=== PATIENT | male | born 1960 | race Caucasian/White ===

== ENCOUNTER 2016-06-21 14:30 | Observation (INO) | payer MEDICAID, OTHER ==
[~2016-06-21] VITALS: Ht 177.8 cm; Wt 60.0 kg
[~2016-06-21 14:30] MED LIST: ASPI1TAB69 PO; ATOR10TA15 PO; CARV3.12 PO; CLOP75TA PO; FENT75DI T-DERMAL; LISI-519 PO; ONDA1TAB17 PO; PROC10TA PO
[2016-06-21 14:33] VITALS: BP 177/80; PULSE 87; RESP 17; TEMP 98.2; O2SAT 98
[2016-06-21 14:42] VITALS: O2SAT 100
[2016-06-21] MEDS ORDERED: SODIUM CHLORIDE 0.9% FLUSH 10 ML FLUSH IVF PRN (15:00)
[2016-06-21] MEDS ORDERED: ONDANSETRON HCL 4 MG/2 ML VIAL IV PUSH ONE (15:00)
--- NOTE | 2016-06-21 15:03 | PD ---
HPI Chief Complaint: Chest Pain Time Seen by Provider: 14:50 Travel History International Travel<30 days: No Contact w/Intl Traveler<30days: No Traveled to known affect area: No History of Present Illness HPI Patient comes in complaining of right-sided chest pain that is sharp stabbing like in nature that began this morning. Patient states he took his morning home medications, including an aspirin, that seemed to improve his symptoms for little while however symptoms came back. Patient reports associated nausea, headache, and right-sided jaw pain. Patient states the symptoms are similar to when he had a heart attack approximately a year ago. Patient denies anything making symptoms worse. Denies any shortness of breath, numbness or tingling, abdominal pain, vomiting, or loss or change in bowel or bladder. 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 Pride that placed stent last year. PFSH Past Medical History Hx Anticoagulant Therapy: Yes Cardiovascular Problems: Yes ([place] ) High Cholesterol: No Chest Pain: Yes Congestive Heart Failure: No Cerebrovascular Accident: No Coronary Artery Disease: Yes Diminished Hearing: No Endocrine: No Genitourinary: No Immune Disorder: No Musculoskeletal: No Psychiatric: No Reproductive: No Respiratory: No Immunizations Current: No Migraines: No ?: Not Past Surgical History Cardiac Surgery: Yes (CARDIAC CATH W/ STENT 04/27/15) Other Surgery: Yes (EXTENSIVE FACIAL RECONSTRUCTION PT TRAUMA ) Social History Alcohol Use: Yes (OCCASSIONAL) Tobacco Use: Yes (2 PPD X 38 YRS) Substance Use: Yes (USE MARIJUANA) Allergies-Medications (Allergen,Severity, Reaction): Coded Allergies: Adhesives (Verified Allergy, Severe, RASH AND INFECTION, 12/23/15) Reported Meds & Prescriptions Reported Meds & Active Scripts Active Reported Percocet (Oxycodone-Acetaminophen) 5-325 mg Tab 1 Tab PO Q4H PRN Clopidogrel (Clopidogrel Bisulfate) 75 Mg Tab 75 Mg PO DAILY Atorvastatin (Atorvastatin Calcium) 10 Mg Tab 10 Mg PO HS Lisinopril 5 Mg Tab 5 Mg PO DAILY Ondansetron (Ondansetron HCl) 8 Mg Tab 8 Mg PO TID PRN Prochlorperazine Maleate 10 Mg Tab 10 Mg PO QID PRN Carvedilol 3.125 Mg Tab 3.125 Mg PO BID Aspirin 81 Mg Tabdr 162 Mg PO DAILY Review of Systems Except as stated in HPI: all other systems reviewed are Neg Physical Exam Narrative GENERAL: Well-developed, under nourished, in no acute distress, and non-ill appearing. SKIN: Focused skin assessment warm and dry. HEAD: Atraumatic. Normocephalic. EYES: Pupils equal and round. EOMI. No scleral icterus. No injection or drainage. ENT: No nasal bleeding or discharge. Mucous membranes pink and moist. NECK: Trachea midline. No JVD. Supple. No nuclear rigidity. CARDIOVASCULAR: Regular rate and rhythm. No murmur appreciated. RESPIRATORY: No accessory muscle use. No respiratory distress. Clear to auscultation. Breath sounds equal bilaterally. GASTROINTESTINAL: Abdomen soft, non-tender, nondistended. Hepatic and splenic margins not palpable. No pulsatile mass. MUSCULOSKELETAL: No obvious deformities. No clubbing. No cyanosis. No edema. Full range of motion. NEUROLOGICAL: Awake and alert. No obvious cranial nerve deficits. Motor grossly within normal limits. Normal speech. PSYCHIATRIC: Appropriate mood and affect; insight and judgment normal. Data Data Last Documented VS Vital Signs Date Time Temp Pulse Resp B/P Pulse Ox O2 Delivery O2 Flow Rate FiO2 06/21/16 17:37 92 16 129/79 98 Room Air 06/21/16 14:33 98.2 Orders Electrocardiogram (06/21/16 ) Basic Metabolic Panel (Bmp) (06/21/16 14:51) Ckmb (Isoenzyme) Profile (06/21/16 14:51) Complete Blood Count With Diff (06/21/16 14:51) Magnesium (Mg) (06/21/16 14:51) Prothrombin Time / Inr (Pt) (06/21/16 14:51) Act Partial Throm Time (Ptt) (06/21/16 14:51) Troponin I (06/21/16 14:51) Chest, Single Ap (06/21/16 14:51) Ecg Monitoring (06/21/16 14:51) Bilateral Bp Monitoring (06/21/16 14:51) Iv Access Insert/Monitor (06/21/16 14:51) Oximetry (06/21/16 14:51) Oxygen Administration (06/21/16 14:51) Sodium Chloride 0.9% Flush (Ns Flush) (06/21/16 15:00) Ct Pulmonary Angiogram (06/21/16 14:51) Ondansetron Inj (Zofran Inj) (06/21/16 15:00) Iohexol 350 Inj (Omnipaque 350 Inj) (06/21/16 17:36) Admit Order (Ed Use Only) (06/21/16 18:10) Labs Laboratory Tests Test 06/21/16 15:00 White Blood Count 10.8 TH/MM3 Red Blood Count 2.45 MIL/MM3 Hemoglobin 8.7 GM/DL Hematocrit 24.5 % Mean Corpuscular Volume 99.9 FL Mean Corpuscular Hemoglobin 35.5 PG Mean Corpuscular Hemoglobin 35.6 % Concent Red Cell Distribution Width 13.2 % Platelet Count 79 TH/MM3 Mean Platelet Volume 9.2 FL Neutrophils (%) (Auto) 72.5 % Lymphocytes (%) (Auto) 18.4 % Monocytes (%) (Auto) 8.4 % Eosinophils (%) (Auto) 0.5 % Basophils (%) (Auto) 0.2 % Neutrophils # (Auto) 7.8 TH/MM3 Lymphocytes # (Auto) 2.0 TH/MM3 Monocytes # (Auto) 0.9 TH/MM3 Eosinophils # (Auto) 0.1 TH/MM3 Basophils # (Auto) 0.0 TH/MM3 CBC Comment AUTO DIFF Differential Comment AUTO DIFF CONFIRMED Platelet Estimate LOW Platelet Morphology Comment NORMAL Prothrombin Time 11.4 SEC Prothromb Time International 1.0 RATIO Ratio Activated Partial 34.8 SEC Thromboplast Time Sodium Level 133 MEQ/L Potassium Level 3.9 MEQ/L Chloride Level 101 MEQ/L Carbon Dioxide Level 24.2 MEQ/L Anion Gap 8 MEQ/L Blood Urea Nitrogen 9 MG/DL Creatinine 0.65 MG/DL Estimat Glomerular Filtration 128 ML/MIN Rate Random Glucose 103 MG/DL Calcium Level 8.7 MG/DL Magnesium Level 1.4 MG/DL Total Creatine Kinase 46 U/L Troponin I LESS THAN 0.02 NG/ML Exceptions Acute Myocardial Infarction ASA Not Given on Arrival: Already taken by patient MDM Medical Decision Making Medical Screen Exam Complete: Yes Emergency Medical Condition: Yes Medical Record Reviewed: Yes Interpretation(s) EKG reviewed by Dr. Sheffield shows normal sinus rhythm with a ventricular rate of 84. No STEMI. Chest x-ray reviewed by radiologist shows: no acute findings. CTA read by the radiologist shows: No evidence of pulmonary embolism. Bilateral pulmonary nodules characteristic metastatic disease. The largest and the right upper lobe measures 2 cm. Infiltrating mediastinal mass. Differential Diagnosis Acute coronary syndrome, PE, pneumonia, pleurisy, other Narrative Course Patient was seen and examined. Initial laboratory and radiological studies were obtained and reviewed. Discussed patient with Dr. Sheffield, who recommends having the patient placed in observation for further evaluation of chest pain and and monitoring anemia. Discussed all findings and plan care of patient, who was agreeable for admission. All questions were answered. Patient remained stable throughout ED course. [facility] Point of Care Internal Pos. & Neg. Controls: Passed Fecal Specimen Occult Blood: Negative Comment Verbal consent was obtained. Digital rectal exam was performed. Stool specimen applied and test interpreted between 1 and 3 minutes of application and the result was negative. Internal Controls: Both positive and negative controls were validated. chicken boner Ciarra was present during this exam. Physician Communication Physician Communication [id number] Hunter, who is agreeable to admit the patient. Diagnosis Primary Impression: Chest pain Qualified Code: R07.9 - Chest pain, unspecified type Additional Impression: Anemia Qualified Code: D64.9 - Anemia, unspecified type Admitting Information Admitting Physician Requests: Observation Condition: Stable Roni Payne June 21, 2016 15:02
[2016-06-21 15:13] LABS: AUTOMATED NEUTROPHIL # 7.8 TH/MM3 (1.8-7.7); BASOPHIL % 0.2 % (0.0-2.0); EOSINOPHIL # 0.1 TH/MM3 (0-0.4); EOSINOPHIL % 0.5 % (0.0-4.0); HEMATOCRIT 24.5 % (39.0-51.0); LYMPH % 18.4 % (9.0-44.0); MEAN CELL VOLUME 99.9 FL (80.0-100.0); MEAN CORPUSCULAR HEMOGLOBIN 35.5 PG (27.0-34.0); MEAN CORPUSCULAR HGB CONC 35.6 % (32.0-36.0); MONO % 8.4 % (0.0-8.0); NEUT % 72.5 % (16.0-70.0); PLATELET COUNT 79 TH/MM3 (150-450); RED BLOOD COUNT 2.45 MIL/MM3 (4.50-5.90); RED CELL DISTRIBUTION WIDTH 13.2 % (11.6-17.2); WHITE BLOOD COUNT 10.8 TH/MM3 (4.0-11.0)
--- NOTE | 2016-06-21 15:17 | RADRPT ---
EXAM DATE/TIME: 06/21/2016 15:07 [facility] COMPARISON: CHEST SINGLE AP, July 09, 2015, 12:15. INDICATIONS : Pain in middle of chest since early this morning, no shortness of breath MEDICAL HISTORY : Carcinoma, lung. Myocardial infarction. SURGICAL HISTORY : infusaport ENCOUNTER: Initial ACUITY: 1 day PAIN SCORE: 8/10 LOCATION: Bilateral chest FINDINGS: A single view of the chest demonstrates the lungs to be symmetrically aerated without evidence of mas s, infiltrate or effusion. [id number] catheter with tip in cavoatrial junction. Right paratrachea l mass has resolved. The cardiomediastinal contours are unremarkable. Osseous structures are intact. CONCLUSION: No acute disease. Santhosh Jesus MD on June 21, 2016 at 15:13 Board Certified Radiologist. This report was verified electronically.
[2016-06-21 15:18] LABS: HEMO FLAGS AUTO DIFF
[2016-06-21 15:25] LABS: APTT (PATIENT) 34.8 SEC (24.3-30.1); PROTHROMBIN TIME - PATIENT 11.4 SEC (9.8-11.6)
[2016-06-21 15:29] LABS: ANION GAP 8 MEQ/L (5-15); BICARBONATE 24.2 MEQ/L (21.0-32.0); BLOOD UREA NITROGEN 9 MG/DL (7-18); CHLORIDE 101 MEQ/L (98-107); GLOMERULAR FILTRATION RATE 128 ML/MIN (>89); MAGNESIUM 1.4 MG/DL (1.5-2.5); POTASSIUM 3.9 MEQ/L (3.5-5.1); SODIUM (NA) 133 MEQ/L (136-145)
[2016-06-21 15:53] LABS: CREATINE KINASE 46 U/L (39-308)
[2016-06-21 15:55] LABS: PLATELET ESTIMATE SMEAR LOW (NORMAL); PLATELET MORPHOLOGY NORMAL (NORMAL); SCAN/DIFF AUTO DIFF CONFIRMED
[2016-06-21] MEDS ORDERED: PERC5TAB12 PO (16:05)
[2016-06-21] MEDS ORDERED: IOHEXOL 350 MG/ML 10 ML VIAL (for RAD DIAG) IV ONE (17:36)
[2016-06-21 17:37] VITALS: BP 129/79; PULSE 92; RESP 16; O2SAT 98
--- NOTE | 2016-06-21 17:52 | RADRPT ---
EXAM DATE/TIME: 06/21/2016 17:15 [facility] COMPARISON: No previous studies available for comparison. INDICATIONS : Right side chest pain starting this morning. IV CONTRAST: 50 cc Omnipaque 350 (iohexol) IV RADIATION DOSE: 6.53 CTDIvol (mGy) MEDICAL HISTORY : Cardiovascular disease. Carcinoma, lung. SURGICAL HISTORY : None. ENCOUNTER: Initial ACUITY: 1 day PAIN SCALE: 7/10 LOCATION: chest TECHNIQUE: Volumetric scanning of the chest was performed using a pulmonary embolism protocol MIP images were re constructed. Using automated exposure control and adjustment of the mA and/or kV according to patien t size, radiation dose was kept as low as reasonably achievable to obtain optimal diagnostic quality images. FINDINGS: PULMONARY ARTERIES: No filling defects are seen in the pulmonary arteries through the segmental level. LUNGS: Bilateral pulmonary nodules are identified. The largest is identified in the right upper lobe and mary sures 2 cm in size. An 11 mm nodule is identified in the mid right lower lobe adjacent to the interlo bar fissure. Subcentimeter nodules are identified in the left upper lobe, left lower lobe, right midd le lobe and right lower lobe. PLEURAE: There is no pleural thickening or pleural effusion. MEDIASTINUM: Soft tissue mass is identified throughout the superior mediastinum extending caudally into the precar inal and subcarinal region. MUSCULOSKELETAL: Within normal limits for patient age. MISCELLANEOUS: The visualized upper abdominal organs demonstrate no acute abnormality. CONCLUSION: No evidence of pulmonary embolism. Bilateral pulmonary nodules characteristic of metastatic disease. Largest is located in the right upp er lobe and measures 2 cm. Infiltrating mediastinal mass. Quang Pablo MD on June 21, 2016 at 17:44 Board Certified Radiologist. This report was verified electronically.
[2016-06-21] MEDS ORDERED: SODIUM CHLOR 0.9% 1000 ML INJ 1,000 ML IV SCH (19:55)
[2016-06-21] MEDS ORDERED: ONDANSETRON HCL 4 MG/2 ML VIAL IVP PRN (20:00)
[2016-06-21] MEDS ORDERED: NALOXONE HCL 0.4 MG/ML AMP IV PRN (20:00)
[2016-06-21] MEDS ORDERED: SODIUM CHLORIDE 0.9% FLUSH 10 ML FLUSH IV FLUSH PRN (20:00)
[2016-06-21] MEDS ORDERED: ACETAMINOPHEN 325 MG TAB PO PRN (20:00)
[2016-06-21 20:30] VITALS: O2SAT 98
[2016-06-21] MEDS ORDERED: SODIUM CHLORIDE 0.9% FLUSH 10 ML FLUSH IV FLUSH SCH (21:00)
[2016-06-22] MEDS ORDERED: ASPIRIN 325 MG TAB PO SCH (09:00)
--- NOTE | 2016-06-22 15:40 | EKG ---
Date Performed: 06/21/2016 Time Performed: 14:44:40 PTAGE: 55 years EKG: Sinus rhythm MODERATE INTRAVENTRICULAR CONDUCTION DELAY NONSPECIFIC T-WAVE ABNORMALITY Compared to prior tracing no significant change BORDERLINE ECG PREVIOUS TRACING : 07/01/2015 13.21 DOCTOR: Celina Balderas Interpretating Date/Time 06/22/2016 15:36:50
== END 2016-06-21 20:58 | disposition left against medical advice (07) ==
LOC: NEPE 14:30 → NEDA 18:12
PROVIDERS: ADMIT Family Medicine; ATTEND Family Medicine
DX: R07.89 Other chest pain (principal); I25.10 Atherosclerotic heart disease of native coronary artery without angina pectoris; D64.9 Anemia, unspecified; I25.2 Old myocardial infarction; F17.200 Nicotine dependence, unspecified, uncomplicated; Z79.01 Long term (current) use of anticoagulants; Z91.048 Other nonmedicinal substance allergy status; Z79.82 Long term (current) use of aspirin; R11.0 Nausea; R68.84 Jaw pain; R51 Headache; Z79.899 Other long term (current) drug therapy; R94.31 Abnormal electrocardiogram [ECG] [EKG]; F12.90 Cannabis use, unspecified, uncomplicated
CPT/HCPCS: 71010; 71275; 80048; 82550; 83735; 84484; 85025; 85610; 85730; 93005; 96374; 99285; G0378; J2405; Q9967